=== PATIENT | male | born 1975 | race Caucasian/White ===

== ENCOUNTER 2017-12-16 13:34 | Emergency (ER) | payer OTHER ==
[~2017-12-16] VITALS: Ht 182.9 cm; Wt 75.1 kg
[2017-12-16] MEDS ORDERED: NORCO 5/3251 TABLET PO (16:27)
[2017-12-16 16:44] VITALS: BP 140/88
== END 2017-12-16 16:50 | disposition home or self-care (01) ==
LOC: EME 13:34
DX: S00.83XA Contusion of other part of head, initial encounter (principal); S83.92XA Sprain of unspecified site of left knee, initial encounter; S53.401A Unspecified sprain of right elbow, initial encounter; V03.00XA Pedestrian on foot injured in collision with car, pick-up truck or van in nontraffic accident, initial encounter; K50.90 Crohn's disease, unspecified, without complications; M35.00 Sjogren syndrome, unspecified; Z88.1 Allergy status to other antibiotic agents; Z88.8 Allergy status to other drugs, medicaments and biological substances
CPT/HCPCS: 70450; 73080; 73564; 99281; 99284